=== PATIENT | male | born 1995 ===

== ENCOUNTER 2019-06-18 18:47 | Outpatient (CLI) | payer MEDICAID | END 2019-06-18 18:48 | disposition EMS.NT | LOC: EMS 18:47 | PROVIDERS: ATTEND Surgery | DX: R11.2 Nausea with vomiting, unspecified (principal) ==

== ENCOUNTER 2023-12-13 08:00 | Outpatient (CLI) | payer BC, MEDICAID | END 2023-12-13 23:59 | disposition home or self-care (01) | LOC: LAB.N 08:00 | PROVIDERS: ATTEND Nurse Practitioner | DX: R07.0 Pain in throat (principal) | CPT/HCPCS: 87070 ==

== ENCOUNTER 2024-02-08 13:19 | Outpatient (CLI) | payer BC ==
--- NOTE | 2024-02-08 18:58 | XRAY Report ---
PROCEDURE: Thoracic Spine 2V INDICATIONS: BACK PX TECHNIQUE: 2 views of the thoracic spine were acquired. COMPARISON: None. FINDINGS: Bones: No fractures or dislocations. No suspicious bony lesions. 12 pairs of ribs are noted, and a ppear intact where visualized. Mild dextrocurvature. Soft tissues: No paravertebral stripe thickening. IMPRESSION: No acute bony abnormality. No significant degenerative change. Reviewed by: Ke Mobley MD on 02/08/2024 6:57 PM PDT Approved by: Ke Mobley MD on 02/08/2024 6:57 PM PDT Station ID: [id number]
--- NOTE | 2024-02-08 18:59 | XRAY Report ---
PROCEDURE: Lumbar Spine 2-3V INDICATIONS: THORACIC AND LOW BACK PAIN TECHNIQUE: 2 views of the lumbar spine were acquired. COMPARISON: None. FINDINGS: Surgical change: None. Bones: 5 [id number] vertebrae are present. There is normal bony alignment. No vertebral body co mpression fractures. No suspicious bony lesions. Soft tissues: Overlying bowel gas pattern is normal. No suspicious soft tissue calcifications. IMPRESSION: No acute osseous abnormality. No significant degenerative changes. Reviewed by: Ke Nice MD on 02/08/2024 6:57 PM PDT Approved by: Ke Nice MD on 02/08/2024 6:57 PM PDT Station ID: [id number]
== END 2024-02-08 13:20 | disposition home or self-care (01) ==
LOC: DI 13:19
PROVIDERS: ATTEND Physician Assistant
DX: M54.6 Pain in thoracic spine (principal); M54.50 Low back pain, unspecified